=== PATIENT | female | born 1985 | race Caucasian/White ===

== ENCOUNTER 2018-06-17 20:25 | Emergency (ER) | payer MEDICAID ==
[2018-06-17] MEDS: ACETAMINOPHEN 500 MG TAB PO (20:53)
== END 2018-06-17 21:05 | disposition home or self-care (01) ==
LOC: FTE 20:25
DX: O9A.211 Injury, poisoning and certain other consequences of external causes complicating pregnancy, first trimester (principal); S90.862A Insect bite (nonvenomous), left foot, initial encounter; W57.XXXA Bitten or stung by nonvenomous insect and other nonvenomous arthropods, initial encounter; Y92.9 Unspecified place or not applicable; Z3A.00 Weeks of gestation of pregnancy not specified
CPT/HCPCS: 99282; Z7502

== ENCOUNTER 2018-07-13 19:22 | Emergency (ER) | payer MEDICAID ==
[2018-07-13 20:56] LABS: URINE BLOOD (Dip) POC Negative (NEGATIVE); URINE GLUCOSE (Dip) POC Negative (NEGATIVE); URINE KETONES (Dip) POC Negative (NEGATIVE); URINE LEUKOCYTE EST (Dip) POC Trace (NEGATIVE); URINE NITRITE (Dip) POC Negative (NEGATIVE); URINE TOTAL PROTEIN POC Negative (NEGATIVE)
[2018-07-13 21:10] LABS: ADD MAN DIFF? NO
[2018-07-13 21:13] LABS: BASOPHIL # 0.1 10^3/ul (0.0-0.1); BASOPHILS % 0.5 % (0.0-2.0); EOSINOPHILS % 0.3 % (0.0-7.0); HEMATOCRIT 36.1 % (37.0-47.0); HEMOGLOBIN 12.6 g/dl (12.0-16.0); LYMPHOCYTES # 1.9 10^3/ul (0.8-2.9); LYMPHOCYTES % 14.8 % (15.0-51.0); MEAN CORPUSCULAR HEMOGLOBIN 33.4 pg (29.0-33.0); MEAN CORPUSCULAR HGB CONC 34.9 g/dl (32.0-37.0); MEAN CORPUSCULAR VOLUME 95.8 fl (82.0-101.0); MEAN PLATELET VOLUME 9.3 fl (7.4-10.4); MONOCYTE # 0.5 10^3/ul (0.3-0.9); MONOCYTES % 3.9 % (0.0-11.0); NEUTROPHIL # 10.4 10^3/ul (1.6-7.5); NEUTROPHILS % 80.1 % (39.0-77.0); PLATELET COUNT 269 10^3/UL (140-415); RED BLOOD COUNT 3.77 10^6/ul (4.20-5.40); RED CELL DISTRIBUTION WIDTH 11.3 % (11.5-14.5)
[2018-07-13 21:13] LABS: WHITE BLOOD COUNT 12.9 10^3/ul (4.8-10.8)
[2018-07-13 21:15] LABS: ADD UMIC NO; UR ASCORBIC ACID NEGATIVE (NEGATIVE); UR BILIRUBIN (Dip) NEGATIVE (NEGATIVE); UR BLOOD (Dip) NEGATIVE (NEGATIVE); UR CLARITY CLEAR (CLEAR); UR COLOR YELLOW (YELLOW); UR GLUCOSE (Dip) NEGATIVE (NEGATIVE); UR KETONES (Dip) NEGATIVE (NEGATIVE); UR LEUKOCYTE ESTERASE (Dip) NEGATIVE Leu/ul (NEGATIVE); UR NITRITE (Dip) NEGATIVE (NEGATIVE); UR SPECIFIC GRAVITY (Dip) 1.013 (1.003-1.030); UR TOTAL PROTEIN (Dip) NEGATIVE (NEGATIVE); UR UROBILINOGEN (Dip) NEGATIVE (NEGATIVE)
== END 2018-07-13 23:54 | disposition home or self-care (01) ==
LOC: FTE 23:54
DX: O26.891 Other specified pregnancy related conditions, first trimester (principal); R10.2 Pelvic and perineal pain; Z3A.13 13 weeks gestation of pregnancy
CPT/HCPCS: 36415; 76801; 81003; 81025; 84702; 85025; 86900; 86901; 99284-25

== ENCOUNTER 2018-12-25 16:48 | Outpatient (CLI) | payer MEDICAID | END 2018-12-25 18:17 | disposition home or self-care (01) | LOC: OBT 16:48 → L-D 16:49 → OBT 18:17 | DX: O26.893 Other specified pregnancy related conditions, third trimester (principal); M79.89 Other specified soft tissue disorders; Z3A.36 36 weeks gestation of pregnancy | CPT/HCPCS: 93970 ==

== ENCOUNTER 2019-01-01 18:01 | Inpatient (IN) | payer MEDICAID ==
[2019-01-01] MEDS ORDERED: LACTATED RINGER'S 1,000 ML IV (18:12)
[2019-01-01 18:28] LABS: ADD MAN DIFF? NO
[2019-01-01] MEDS ORDERED: OXYTOCIN 30 UNITS/LR 500 ML IV ×2 (18:30→21:00)
[2019-01-01] MEDS ORDERED: METHYLERGONOVINE 0.2 MG INJ IM ×2 (18:30→21:00)
[2019-01-01] MEDS ORDERED: CARBOPROST 250 MCG INJ IM ×2 (18:30→21:00)
[2019-01-01] MEDS ORDERED: MISOPROSTOL 200 MCG TAB PR ×2 (18:30→21:00)
[2019-01-01] MEDS ORDERED: LIDOCAINE 1% (MPF) 30 ML INJ INJ (18:30)
[2019-01-01] MEDS ORDERED: BUTORPHANOL 2 MG INJ IV (18:30)
[2019-01-01] MEDS ORDERED: BUTORPHANOL 1 MG INJ IV (18:30)
[2019-01-01 18:34] LABS: WHITE BLOOD COUNT 11.9 10^3/ul (4.8-10.8)
[2019-01-01 18:34] LABS: BASOPHILS % 0.3 % (0.0-2.0); EOSINOPHILS # 0.1 10^3/ul (0.0-0.5); EOSINOPHILS % 1.1 % (0.0-7.0); HEMOGLOBIN 12.6 g/dl (12.0-16.0); LYMPHOCYTES # 2.2 10^3/ul (0.8-2.9); LYMPHOCYTES % 18.8 % (15.0-51.0); MEAN CORPUSCULAR HEMOGLOBIN 34.4 pg (29.0-33.0); MEAN CORPUSCULAR VOLUME 98.4 fl (82.0-101.0); MEAN PLATELET VOLUME 10.4 fl (7.4-10.4); MONOCYTE # 0.8 10^3/ul (0.3-0.9); MONOCYTES % 6.9 % (0.0-11.0); NEUTROPHIL # 8.6 10^3/ul (1.6-7.5); PLATELET COUNT 250 10^3/UL (140-415); RED BLOOD COUNT 3.66 10^6/ul (4.20-5.40); RED CELL DISTRIBUTION WIDTH 11.5 % (11.5-14.5)
[2019-01-01 18:53] LABS: INR 0.89; PROTIME 12.1 Sec (11.9-14.9); PT RATIO 0.9
[2019-01-01] MEDS: OXYTOCIN 30 UNITS/LR 500 ML IV ×2 (18:53→18:54)
[2019-01-01 18:54] LABS: PARTIAL THROMBOPLASTIN TIME 24.4 Sec (23.0-35.0)
[2019-01-01] MEDS: AMPICILLIN 2 GM/NS (PMX) 100 ML IV (18:54)
[2019-01-01] MEDS: KETOROLAC 30 MG INJ IV (18:55)
[2019-01-01 19:26] LABS: HEPATITIS B SURFACE ANTIGEN NEGATIVE (NEGATIVE)
[2019-01-01] MEDS: IBUPROFEN 600 MG TAB PO (20:02)
[2019-01-01] MEDS: LACTATED RINGER'S 1,000 ML IV* (20:40)
[2019-01-01] MEDS ORDERED: HYDROCODONE/APAP (5/325) TAB PO (21:00)
[2019-01-01] MEDS ORDERED: DIBUCAINE 1% 30 GM OINT TOP (21:00)
[2019-01-01] MEDS ORDERED: ZOLPIDEM 5 MG TAB PO (21:00)
[2019-01-01] MEDS ORDERED: LANOLIN HPA 1 PKT TOP (21:00)
[2019-01-01] MEDS ORDERED: AMPICILLIN 1 GM/NS (PMX) 50 ML IV (22:30)
[2019-01-01] MEDS: MAGNESIUM HYDROXIDE 30ML CUP PO (23:35)
[2019-01-01] MEDS: SENNA/DOCUSATE NA (8.6MG/50MG) TAB PO (23:35)
[2019-01-01] MEDS: BENZOCAINE 20% 56 ML SPRAY TOP (23:36)
[2019-01-01] MEDS: WITCH HAZEL/GLYCERIN PAD PR (23:36)
[2019-01-02] MEDS: IBUPROFEN 600 MG TAB PO ×4 (00:50→17:59)
[2019-01-02] MEDS: LACTATED RINGER'S 1,000 ML IV* (04:40)
[2019-01-02 06:52] LABS: ADD MAN DIFF? NO
[2019-01-02 06:58] LABS: WHITE BLOOD COUNT 12.3 10^3/ul (4.8-10.8)
[2019-01-02 06:58] LABS: BASOPHILS % 0.3 % (0.0-2.0); EOSINOPHILS # 0.1 10^3/ul (0.0-0.5); EOSINOPHILS % 0.8 % (0.0-7.0); HEMOGLOBIN 11.2 g/dl (12.0-16.0); LYMPHOCYTES # 1.7 10^3/ul (0.8-2.9); LYMPHOCYTES % 13.7 % (15.0-51.0); MEAN CORPUSCULAR HEMOGLOBIN 34.6 pg (29.0-33.0); MEAN CORPUSCULAR VOLUME 98.8 fl (82.0-101.0); MEAN PLATELET VOLUME 10.3 fl (7.4-10.4); MONOCYTE # 0.6 10^3/ul (0.3-0.9); NEUTROPHIL # 9.7 10^3/ul (1.6-7.5); NEUTROPHILS % 79.2 % (39.0-77.0); PLATELET COUNT 208 10^3/UL (140-415); RED BLOOD COUNT 3.24 10^6/ul (4.20-5.40); RED CELL DISTRIBUTION WIDTH 11.7 % (11.5-14.5)
[2019-01-02] MEDS: SENNA/DOCUSATE NA (8.6MG/50MG) TAB PO ×2 (09:48→20:28)
[2019-01-02] MEDS: MAGNESIUM HYDROXIDE 30ML CUP PO ×2 (09:49→20:28)
[2019-01-02] MEDS: HYDROCODONE/APAP (5/325) TAB PO (09:50)
[2019-01-02 16:22] LABS: RAPID PLASMA REAGIN REACTIVE (NR)
[2019-01-03] MEDS: IBUPROFEN 600 MG TAB PO ×3 (00:22→13:47)
[2019-01-03] MEDS: VARICELLA VACCINE LIVE/PF 1,350 UNIT/0.5 ML ML SC* (09:00)
[2019-01-03] MEDS: SENNA/DOCUSATE NA (8.6MG/50MG) TAB PO (09:00)
[2019-01-03] MEDS ORDERED: DIPHTH/TET/ACEL PERTUSS (ADULT) 0.5 ML VIAL IM* (09:00)
[2019-01-03] MEDS: MAGNESIUM HYDROXIDE 30ML CUP PO (09:00)
[2019-01-03] MEDS ORDERED: MEASLES,MUMPS,RUBELLA VACCINE INJ SC* (09:00)
[2019-01-08 12:36] LABS: FLUORESCENT TREPONEMAL AB NON-REACTIVE (NON-REACTIVE)
== END 2019-01-03 18:43 | disposition home or self-care (01) | DRG 807 ==
LOC: OBT 18:01 → L-D 18:02 → OBT 18:07 → L-D 18:07 → PP1 20:31
PROVIDERS: Obstetrics & Gynecology
PROC: 10E0XZZ Delivery of Products of Conception, External Approach (ICD-10-PCS; principal; 2019-01-01)
PROC: 4A1HXCZ Monitoring of Products of Conception, Cardiac Rate, External Approach (ICD-10-PCS; 2019-01-01)
PROC: 0HQ9XZZ Repair Perineum Skin, External Approach (ICD-10-PCS; 2019-01-01)
DX: O70.0 First degree perineal laceration during delivery (principal); Z37.0 Single live birth; Z3A.37 37 weeks gestation of pregnancy
CPT/HCPCS: 85025; 85610; 85730; 86592; 86850; 86900; 86901; 87340; 90716